=== PATIENT | male | born 1980 | race African-American/Black ===

== ENCOUNTER 2020-08-20 15:03 | Emergency (ER) | payer BC, OTHER ==
[2020-08-20 15:06] VITALS: BP 112/58; PULSE 70; TEMP 98.9; BMI 26.6
[2020-08-20] MEDS ORDERED: IBUPROFEN 600 MG TABLET (FP) PO ONE ×2 (15:26→15:33)
== END 2020-08-20 16:20 | disposition home or self-care (01) ==
LOC: FER 15:03
DX: M79.642 Pain in left hand (principal)
CPT/HCPCS: 73110-TC-LT-FY; 73130-TC-LT-FY; 99283-25

== ENCOUNTER 2021-09-29 22:45 | Emergency (ER) | payer BC ==
[2021-09-29 23:00] VITALS: BP 119/77; PULSE 61; TEMP 98.6; BMI 25.4
== END 2021-09-29 23:26 | disposition home or self-care (01) ==
LOC: FER 22:45
DX: J06.9 Acute upper respiratory infection, unspecified (principal); Z11.52 Encounter for screening for COVID-19
CPT/HCPCS: 87804; 99283-25; C9803; U0003; U0005

== ENCOUNTER 2022-09-03 13:15 | Emergency (ER) | payer BC ==
[2022-09-03] MEDS ORDERED: LACTATED RINGERS SOLUTION 1000 ML INFUS.BAG IV ONE ×2 (13:45→16:24)
[2022-09-03 13:49] VITALS: RESP 16; BMI 25.1
[2022-09-03 14:51] LABS: HEMOGLOBIN 14.9 G/dL (11.7-16.9); MCH 29.9 pg (25.7-33.7); MCHC 34.7 g/dl (32.0-35.9); MEAN CELL VOLUME 86.1 fl (80-96); MEAN PLT VOLUME 8.4 fl (7.5-11.1); PLATELET COUNT 158.4 10^3/uL (134-434); RBC 4.99 10^6/uL (4.00-5.60); RDW 13.1 % (11.9-15.9)
[2022-09-03 14:57] LABS: PLATELET ESTIMATE ADEQUATE
[2022-09-03 14:59] LABS: ALBUMIN 4.4 g/dl (3.4-5.0); BILIRUBIN,TOTAL 0.6 mg/dl (0.2-1); CALCIUM 9.4 mg/dl (8.5-10); MAGNESIUM 1.5 mg/dL (1.8-2.4); PHOSPHOROUS 2.8 mg/dl (2.5-4.9); TOT PROT 7.1 g/dl (6.4-8.2)
[2022-09-03] MEDS ORDERED: MAGNESIUM SULF 50% (8.12 MEQ/2 ML-1 GM VIAL) IVPB ONE (16:08)
[2022-09-03] MEDS ORDERED: MAGNESIUM SULFATE IN WATER 2 GM/50 ML IVPB IVPB ONE (16:21)
[2022-09-03 17:34] VITALS: BP 127/80; PULSE 64; TEMP 98.8
== END 2022-09-03 17:39 | disposition home or self-care (01) ==
LOC: FER 13:15
PROC: 3E033GC Introduction of Other Therapeutic Substance into Peripheral Vein, Percutaneous Approach (ICD-10-PCS; principal; 2022-09-03)
DX: R42 Dizziness and giddiness (principal)
CPT/HCPCS: 0241U-QW; 36415; 71046-TC-FY; 80053; 81003; 83735; 84100; 84439; 84443; 84484; 85025; 85379; 87086; 93005; 99285-25

== ENCOUNTER 2022-09-30 15:00 | Emergency (ER) | payer BC ==
[2022-09-30 15:27] VITALS: BP 127/79; PULSE 70; RESP 16; TEMP 98.1; BMI 25.2
== END 2022-09-30 16:35 | disposition home or self-care (01) ==
LOC: FER 15:00
DX: H92.03 Otalgia, bilateral (principal)
CPT/HCPCS: 99281-25

== ENCOUNTER 2023-05-02 17:52 | Emergency (ER) | payer BC, OTHER ==
[2023-05-02 18:00] VITALS: BP 140/96; PULSE 57; RESP 20; TEMP 97.6; BMI 26.4
== END 2023-05-02 18:55 | disposition home or self-care (01) ==
LOC: FER 17:52
DX: H92.01 Otalgia, right ear (principal); R09.89 Other specified symptoms and signs involving the circulatory and respiratory systems; R51.9 Headache, unspecified; R42 Dizziness and giddiness; R05.9 Cough, unspecified; R11.0 Nausea; J32.9 Chronic sinusitis, unspecified
CPT/HCPCS: 99283-25